=== PATIENT | female | born 1985 | race Caucasian/White ===

== ENCOUNTER → 2016-05-03 | Outpatient (CLI) | payer MEDICAID ==
[~2016-05-03] MED LIST: PREN1CAP7 PO
== END ==
LOC: HPND 13:10
PROVIDERS: ATTEND Family Medicine
DX: O24.419 Gestational diabetes mellitus in pregnancy, unspecified control (principal); O99.212 Obesity complicating pregnancy, second trimester; Z3A.22 22 weeks gestation of pregnancy
CPT/HCPCS: 76811

== ENCOUNTER → 2016-05-31 | Outpatient (CLI) | payer MEDICAID | LOC: HPND 12:42 | PROVIDERS: ATTEND Family Medicine | DX: O99.212 Obesity complicating pregnancy, second trimester (principal); O24.415 Gestational diabetes mellitus in pregnancy, controlled by oral hypoglycemic drugs; E66.01 Morbid (severe) obesity due to excess calories; Z68.42 Body mass index [BMI] 45.0-49.9, adult | CPT/HCPCS: 76816 ==